=== PATIENT | female | born 1965 | race Caucasian/White ===

== ENCOUNTER → 2023-09-19 10:29 | Outpatient (REF) | payer OTHER, SELFPAY ==
[2023-09-19 15:53] LABS: Mumps Virus IgG Positive; Rubeola (Measles) IgG Negative; Varicella Zoster IgG (VZV) Equivocal
[2023-09-19 20:53] LABS: Rubella Positive
[2023-09-22 02:20] LABS: Quantiferon Mitogen minus NIL 9.36 IU/mL; Quantiferon NIL 0.02 IU/mL; Quantiferon Plus TB1 minus NIL 0.02 IU/mL (0.00-0.34); Quantiferon Plus TB2 minus NIL 0.06 IU/mL (0.00-0.34); Quantiferon TB Gold Plus Negative (Negative)
== END ==
LOC: OHS 10:29
PROVIDERS: ATTENDING PHYSICIAN Nurse Practitioner Family
DX: Z23 Encounter for immunization (principal)
CPT/HCPCS: 36415; 86480; 86735; 86762; 86765; 86787

== ENCOUNTER 2024-01-17 13:58 | Emergency (ER) | payer BC, SELFPAY ==
[2024-01-17 14:00] VITALS: BP 85/51
--- NOTE | 2024-01-17 14:46 | ED.GENMED ---
History of Present Illness
General
Chief Complaint: Dizziness
Time Seen by Provider: 01/17/24 14:44
History of Present Illness
History of Present Illness:
HPI: Earlier in the day, the patient donated blood. About an hour and a half later she had a general unwell feeling to the point that she almost felt she was going to pass out and felt very dizzy. She states she has been drinking plenty of fluids
today. She denies any other symptoms.
EXAM:
GENERAL: Well appearing in no distress, initial blood pressure low at 85/51
HEENT: Moist oral mucosa
CARDIOVASCULAR: No murmurs, normal heart rate, regular rhythm, No chest wall tenderness
PULMONARY: No respiratory distress, breath sounds are clear and equal
ABDOMEN: Soft with no peritoneal signs, no tenderness
NEUROLOGIC: Excellent strength all extremities, no coordination deficits
PSYCHIATRIC: Appropriate mental status, normal insight and judgement
EXTREMITIES: Nontender, no edema, moves all extremities equally
SKIN: Appears pale
TIME OF INITIAL ENCOUNTER: 2:40 PM
NUMBER AND COMPLEXITY OF PROBLEMS ADDRESSED AT THE ENCOUNTER
� Chronic conditions affecting care: Denies any significant past medical history
� Acute Exacerbation and/or Progression of Chronic Illness: This is an acute problem
� Differential Diagnosis includes: Anemia, dehydration, dysrhythmia
AMOUNT AND/OR COMPLEXITY OF DATA TO BE REVIEWED AND ANALYZED
� I performed an independent evaluation of and my interpretation is:
EKG: Sinus 63, normal axis, no acute ST abnormality
CT:
X-rays:
Laboratory Studies: White count 7.4, hemoglobin 10.0
Other:
� Review of other/old records: I looked for old records, there is no old hemoglobin to compare
� Clinical information was obtained by an independent historian: None needed
� Prescriptions/Medications Considered but not given:
� Further testing considered but not performed:
RISK OF COMPLICATIONS AND/OR MORBIDITY OR MORTALITY OF PATIENT MANAGEMENT
� Social determinants of health affecting care: The patient lives at home and works here at [facility] [employer] [facility] [employer]
� Discussion with other providers:
� Escalation of care including admission/observation vs risk of discharge considered: The patient was given IV fluids proving her blood pressure she was hypotensive upon arrival. Will also add lab work for further evaluation.
Hemoglobin 10.0, the patient feels markedly improved after 2 L of fluid. Repeat systolic around 92. She was able to get up without any assistance and feels much improved.
Phy Exam
Physical Exam
Physical Exam:
See HPI
Course
Orders/Labs/Results
Orders:
Orders
01/17/24 14:04
ECG [Electrocardiogram (*1)] Urgent
Reason for Study: Vertigo / Dizzy
01/17/24 14:05
EKG- Treatment ONCE
01/17/24 14:48
0.9% Sodium Chloride 1000 ml [Nss] 1,000 ml IV BOLUS
01/17/24 14:59
Basic Metabolic Panel Urgent
Complete Blood Count/With Diff Urgent
Abnormal Lab Results
01/17/24
14:59
RBC 3.97 L 10^6/uL
(4.20-5.40)
Hgb 10.0 L g/dL
(12.0-16.0)
Hct 32.4 L %
(37.0-47.0)
MCH 25.2 L pg
(27.0-31.0)
MCHC 30.9 L g/dL
(33.0-37.0)
RDW 17.1 H %
(11.5-14.5)
MPV 12.8 H fL
(7.4-10.4)
Absolute Monos (auto) 0.7 H 10^3/uL
(0.1-0.6)
Chloride 109 H mmol/L
(98-107)
Glucose 112 H mg/dl
(70-99)
Calcium 8.2 L mg/dl
(8.4-10.2)
01/17/24 14:59
01/17/24 14:59
Vital Signs
Initial and Last Documented VS:
Initial Vital Signs
Temp Pulse Resp BP Pulse Ox
98.6 F 89 20 85/51 99
01/17/24 14:00 01/17/24 14:00 01/17/24 14:00 01/17/24 14:00 01/17/24 14:00
Last Documented Vital Signs
Temp Pulse Resp BP Pulse Ox
98.6 F 80 16 92/51 100
01/17/24 14:00 01/17/24 16:00 01/17/24 16:00 01/17/24 16:23 01/17/24 16:00
*Critical Care Note
Total Time (30-74mins, 75-104mins- exclusive of procedures): Not Applicable
ED Attending Note
-
Portions of this chart may have been created with voice recognition software.� Occasional wrong word or��sound alike� substitutions may have occurred due to the inherent limitations of voice recognition software.
Discharge Plan
Departure
Patient Disposition: Home (Routine Discharge)
Date of Disposition: 01/17/24
Time of Disposition: 16:27
Patient with high blood pressure during this ER visit?: No
Discharge Problem:
Near syncope
Instructions: Dizziness
Referrals:
Kia Norton MD [Family Provider] -
Activity Restrictions/Additional Instructions:
Your hemoglobin level is 10.0 (normal is 12-16), other basic labs are unremarkable. Your blood pressure has been low (top number around 90). Follow-up with your primary care doctor. I recommend against future blood transfusions until hemoglobin
is higher.
Interventions
Interventions:
*Risk Screen - Suicide Last Done: 01/17/24 14:00
*General Assessment Last Done: 01/17/24 14:00
*Neglect/Abuse Screening Last Done: 01/17/24 14:00
*Nursing Disposition Last Done: 01/17/24 17:19
ED- Neurological Assessment Last Done: 01/17/24 15:00
ED- Cardiac Assessment Last Done: 01/17/24 15:00
ED Swallowing Screen Last Done: 01/17/24 15:00
Discharge Date and Time
Discharge Date/Time: 01/17/24 17:19
Print Language: ESTONIAN
[2024-01-17 15:12] LABS: % Basophils 0.4 % (0-2); % Eosinophils 1.6 % (0-6); % Immature Granulocytes 0.4 % (0-0.5); % Lymphocytes 21.4 % (20.5-51.1); % Monocytes 9.2 % (1.7-9.3); Absolute Eosinophils 0.1 10^3/uL (0-0.7); Absolute Lymphocytes 1.6 10^3/uL (1.2-3.4); Absolute Monocytes 0.7 10^3/uL (0.1-0.6); Hematocrit 32.4 % (37.0-47.0); Mean Corp Hgb Conc. 30.9 g/dL (33.0-37.0); Mean Corpuscular Hgb 25.2 pg (27.0-31.0); Mean Corpuscular Volume 81.6 fL (81.0-99.0); Mean Platelet Volume 12.8 fL (7.4-10.4); Nucleated Red Blood Cells % 0 %; Platelet Count 211 10^3/uL (130-400); Red Blood Cell Count 3.97 10^6/uL (4.20-5.40); Red Cell Dist. Width 17.1 % (11.5-14.5); White Blood Cell Count 7.4 10^3/uL (4.8-10.8)
[2024-01-17] MEDS: NSS 1000 IV (15:16)
[2024-01-17 15:20] VITALS: BP 92/66
[2024-01-17 15:26] LABS: Blood Urea Nitrogen 14 mg/dl (7-17); Calcium 8.2 mg/dl (8.4-10.2); Carbon Dioxide 25 mmol/L (22-30); Chloride 109 mmol/L (98-107); Glucose 112 mg/dl (70-99); Sodium 139 mmol/L (135-145); eGFR > 60.00
[2024-01-17 16:00] VITALS: BP 89/52
[2024-01-17 16:23] VITALS: BP 92/51
== END 2024-01-17 17:19 | disposition home or self-care (01) ==
LOC: EMR 13:58
PROVIDERS: EMERGENCY PHYSICIAN Emergency Medicine; FAMILY PHYSICIAN Internal Medicine
DX: R55 Syncope and collapse (principal)
CPT/HCPCS: 99284; 96360; 80048; 85025; 93005; 99285

== ENCOUNTER 2024-09-24 10:12 | Outpatient (RCR) | payer BC, SELFPAY | END 2024-09-24 23:59 | disposition home or self-care (01) | LOC: RST 10:12 | PROVIDERS: ATTENDING PHYSICIAN Otolaryngology; FAMILY PHYSICIAN Internal Medicine | DX: J38.01 Paralysis of vocal cords and larynx, unilateral (principal); R49.0 Dysphonia | CPT/HCPCS: 92507; 92524 ==

== ENCOUNTER 2024-10-21 16:06 | Outpatient (RCR) | payer BC, SELFPAY | END 2024-10-21 23:59 | disposition home or self-care (01) | LOC: RST 16:06 | PROVIDERS: ATTENDING PHYSICIAN Otolaryngology; FAMILY PHYSICIAN Internal Medicine | DX: J38.01 Paralysis of vocal cords and larynx, unilateral (principal); R49.0 Dysphonia | CPT/HCPCS: 92507 ==

== ENCOUNTER 2024-11-17 16:05 | Outpatient (RCR) | payer BC, SELFPAY | END 2024-11-18 07:33 | disposition home or self-care (01) | LOC: RST 16:05 | PROVIDERS: ATTENDING PHYSICIAN Otolaryngology; FAMILY PHYSICIAN Internal Medicine | DX: J38.01 Paralysis of vocal cords and larynx, unilateral (principal); R49.0 Dysphonia | CPT/HCPCS: 92507 ==